=== PATIENT | female | born 1965 | race Caucasian/White ===

== ENCOUNTER → 2020-08-18 | Outpatient (CLI) | payer MEDICAID ==
[~2020-08-18] MED LIST: DITROPAN 5 MG TA5 MG PO; DOCUSATE SODIU250 MG PO; IBUPROFEN600 MG PO; PEPCID40 MG PO; VALIUM 5 MG TAB5 MG PO; VALIUM5 MG PO
[2020-08-18 10:38] LABS: HEMOGLOBIN 15.2 gm/dl (12.3-15.3); RED BLOOD COUNT 4.92 M/UL (4.00-5.10); WHITE BLOOD COUNT 9.3 K/UL (4.5-11.0)
== END ==
LOC: OPSV2 09:00
PROVIDERS: Obstetrics & Gynecology
DX: Z01.812 Encounter for preprocedural laboratory examination (principal); N81.9 Female genital prolapse, unspecified
CPT/HCPCS: 36415; 81001; 85025

== ENCOUNTER → 2020-08-21 | Day surgery (SDC) | payer MEDICAID | END | disposition home or self-care (01) | LOC: OR 07:30 | DX: N81.6 Rectocele (principal); N39.46 Mixed incontinence; N83.312 Acquired atrophy of left ovary; N83.311 Acquired atrophy of right ovary; K66.0 Peritoneal adhesions (postprocedural) (postinfection); E66.9 Obesity, unspecified; E78.5 Hyperlipidemia, unspecified; G47.30 Sleep apnea, unspecified; K21.9 Gastro-esophageal reflux disease without esophagitis; F41.9 Anxiety disorder, unspecified; F17.210 Nicotine dependence, cigarettes, uncomplicated; Z68.34 Body mass index [BMI] 34.0-34.9, adult; Z88.2 Allergy status to sulfonamides; Z79.899 Other long term (current) drug therapy | CPT/HCPCS: 71045; 93005; C1769; J0690; J1100; J1170; J1885; J2001; J2250; J2405; J2704; J2710; J3010; J7030; J7050; J7120 ==